=== PATIENT | female | born 1980 | race Caucasian/White ===

== ENCOUNTER 2020-02-04 10:26 | Day surgery (SDC) | payer BC ==
[2020-02-03 15:13] VITALS: BMI 23.0
[2020-02-04] MEDS ORDERED: MIDAZOLAM HCL 2 MG/2 ML SINGLE DOSE VIAL ONE (12:05)
[2020-02-04] MEDS ORDERED: PROPOFOL 20 ML ONE ×2 (12:07)
[2020-02-04] MEDS ORDERED: DEXAMETHASONE SOD PHOSPHATE 4 MG/1 ML VIAL ONE (12:07)
[2020-02-04] MEDS ORDERED: KETOROLAC TROMETHAMINE 30 MG/1 ML VIAL ONE (12:08)
--- NOTE | 2020-02-04 12:08 | HP ---
History & Physical Update - History History: No Change (Incomplete Ab) - Physical Physical: No Change - Assessment Assessment: No Change - Plan Plan: No Change (Suction, D&C)
[2020-02-04] MEDS ORDERED: PROMETHAZINE HCL 25 MG/1 ML VIAL IVPUSH PRN (12:14)
[2020-02-04] MEDS ORDERED: ONDANSETRON 4 MG/2 ML VIAL IVPUSH PRN (12:14)
[2020-02-04] MEDS ORDERED: oxyCODONE HCL 5 MG TABLET PO PRN (12:14)
[2020-02-04] MEDS ORDERED: LACTATED RINGERS SOLUTION 1,000 ML IV SCH (12:15)
[2020-02-04] MEDS ORDERED: ceFAZolin SODIUM 1 GM VIAL ONE (12:23)
[2020-02-04] MEDS ORDERED: ceFAZolin SODIUM 1 GM VIAL IVPB ONE (12:25)
--- NOTE | 2020-02-04 12:53 | OP ---
Operative Note - Note: Operative Date: 02/04/20 Pre-Operative Diagnosis: Incomplete Ab Operation: Suction, D&C Findings: Small amount of POC Post-Operative Diagnosis: Same as Pre-op Surgeon: Eusebio Butler Anesthesiologist/TRANSCRIPTION: Shaka Sen Anesthesia: General Specimens Removed: retained POC Estimated Blood Loss (mls): 20 Blood Volume Replaced (mls): 0 Fluid Volume Replaced (mls): 600 Operative Report Dictated: Yes
[2020-02-04 14:41] VITALS: PULSE 58
[2020-02-04 16:32] VITALS: BP 96/60; TEMP 97.8
--- NOTE | 2020-02-04 23:23 | OP ---
DATE OF OPERATION: 02/04/2020 PREOPERATIVE DIAGNOSIS: Incomplete . POSTOPERATIVE DIAGNOSIS: Incomplete . PROCEDURE: Suction dilatation and curettage. SURGEON: Dusty Duron MD. ANESTHESIOLOGIST: Shaka Sen MD. ANESTHESIA: General. COMPLICATIONS: None. FINDINGS: Small amount of retained products of conception was noted on suction curettage. No retained products of conception were noted at the end of the procedure. PROCEDURE: The patient was met preoperatively. Risks, benefits, and alternatives of surgery were discussed in detail. The consent form was discussed and explained. The patient verbalized understanding and requested to proceed with the surgery. She was brought to the OR with the IV running. The patient was placed on a surgical table in the supine position. The general anesthesia was achieved without difficulty. The patient was then placed in a dorsal lithotomy position using adjustable Peter stirrups. She was examined under anesthesia. The uterus appeared to be small, anteverted, with no pelvic or adnexal masses. The cervical os was slightly dilated, and there was a small amount of vaginal bleeding. The patient was then prepped and draped in the usual sterile fashion. A timeout procedure was conducted as per standard protocol. The speculum was then used to visualize the cervix. The cervix was grasped with a single-toothed tenaculum. The cervical os did not need to be dilated. A 7-mm suction curet was then used to evacuate the uterine contents. Once this was completed, a sharp curet was used to gently explore the uterine cavity and assure no retained products of conception. Once this was completed, all the instruments were removed. Sponge, lap, instrument counts were correct. Good hemostasis was confirmed. The patient was returned to supine position. She was transferred to recovery room in stable condition and awake. DUSTY DURON M.D. [id number]
--- NOTE | 2020-02-08 17:36 | PATH ---
Surgical Pathology Report Patient Name: SHARIFA CALLAWAY [place]. Rec. #: [id number] /Age/Gender: 1980 (Age: 39) / F Account: [id number] Location: [facility] SUR[facility] Taken: 02/04/2020 Received: 02/04/2020 Reported: 02/08/2020 Physicians: Eusebio Butler M.D. Specimen(s) Received PRODUCTS OF CONCEPTION Clinical History Incomplete Final Diagnosis CONTENTS OF UTERUS, SUCTION D&C: CHORIONIC VILLI PRESENT, CONSISTENT WITH PRODUCTS OF CONCEPTION. MARKED ACUTE DECIDUITIS. ACUTE AND CHRONIC ENDOMETRITIS IDENTIFIED. Electronically Signed Katelyn Hernandes M.D. Gross Description Received in formalin labeled "contents of uterus," and indicated on the requisition to be products of conception, is a 4.0 x 4.0 x 0.3 cm aggregate of foster red soft tissue fragment. No definitive villous tissue or somatic tissue is identified. The formalin is filtered and the specimen is entirely submitted in 3 cassettes. /02/04/2020 [facility]/02/04/2020
== END 2020-02-04 16:30 | disposition home or self-care (01) ==
LOC: JASU-SURG 10:26
PROVIDERS: ATTEND Obstetrics & Gynecology
PROC: 10D17ZZ Extraction of Products of Conception, Retained, Via Natural or Artificial Opening (ICD-10-PCS; principal; 2020-02-04 12:30)
DX: O03.4 Incomplete spontaneous abortion without complication (principal)
CPT/HCPCS: 86850; 86900; 86901; 88305-TC; 94760

== ENCOUNTER 2021-03-29 10:38 | Inpatient (IN) | payer BC ==
[2021-03-29] MEDS: ELECTROLYTE-148 SOLN 1,000 ML IV SCH ×2 (11:30→18:22)
[2021-03-29 11:37] VITALS: BMI 24.7
[2021-03-29 12:14] LABS: BASO % 0.6 % (0-2.0); EOS % 0.2 % (0-4.5); HEMATOCRIT 32.3 % (32.4-45.2); HEMOGLOBIN 11.5 GM/dL (10.7-15.3); LYMPH % 14.4 % (8-40); MCH 30.6 pg (25.7-33.7); MCHC 35.6 g/dl (32.0-36.0); MEAN PLT VOLUME 8.7 fl (7.5-11.1); MONO % 5.3 % (3.8-10.2); NEUT % 79.5 % (42.8-82.8); PLATELET COUNT 199 10^3/uL (134-434); RBC 3.76 M/mm3 (3.60-5.2); RDW 13.1 % (11.6-15.6); WHITE BLOOD COUNT 9.4 K/mm3 (4.0-10.0)
[2021-03-29 12:23] LABS: INR 0.96 (0.83-1.09); PROTHROMBIN TIME (PATIENT) 11.8 SEC (9.7-13.0)
[2021-03-29 12:26] LABS: ACTIVATED PTT 25.1 SECONDS (25.2-36.5)
[2021-03-29 12:31] LABS: BLOOD UREA NITROGEN 14.5 mg/dL (7-18); CALCIUM 8.5 mg/dL (8.5-10.1)
[2021-03-29 12:35] LABS: CREATININE 0.5 mg/dL (0.55-1.3)
[2021-03-29] MEDS ORDERED: PCA PUMP NR ONE ×2 (12:40→20:41)
[2021-03-29] MEDS ORDERED: FENTANYL/BUPIVACAINE/NS/PF - PCEA - 50 ML DISP.SYRIN EP ONE ×3 (12:40→20:41)
[2021-03-29] MEDS ORDERED: BUPIVACAINE HCL/PF 0.25% (2.5MG/ML) 10 ML VIAL ONE ×2 (12:46→12:50)
[2021-03-29] MEDS: FENTANYL/BUPIVACAINE/NS/PF - PCEA - 50 ML DISP.SYRIN EP SCH ×3 (13:00→20:40)
[2021-03-29] MEDS ORDERED: NALOXONE HCL 0.4 MG/ML VIAL IVPUSH PRN (13:20)
[2021-03-29] MEDS ORDERED: OXYTOCIN 20 UNITS in 0.9% NS 20 UNIT/1,000 ML INFUS.BAG IV ONE (17:01)
[2021-03-29] MEDS ORDERED: OXYTOCIN 30 UNITS in 0.9% NS 30 UNIT/500 ML INFUS.BAG IVPB SCH (21:15)
[2021-03-29] MEDS ORDERED: OXYTOCIN 30 UNITS in 0.9% NS 30 UNIT/500 ML INFUS.BAG IVPB ONE (21:16)
[2021-03-29] MEDS ORDERED: BISACODYL 10 MG SUPP.RECT RC PRN (22:44)
[2021-03-29] MEDS ORDERED: BENZOCAINE 20% 57 GM BOTTLE TP PRN (22:44)
[2021-03-29] MEDS ORDERED: METHYLERGONOVINE MALEATE 0.2 MG/1 ML AMP IM PRN (22:44)
[2021-03-29] MEDS ORDERED: WITCH HAZEL 50% (TUCKS) 40 PAD/JAR PAD TP PRN (22:44)
[2021-03-29] MEDS ORDERED: BENZOCAINE 28 GM HEMORRHOIDAL OINTMENT TP PRN (22:44)
[2021-03-29] MEDS ORDERED: OXYTOCIN 20 UNITS in 0.9% NS 20 UNIT/1,000 ML INFUS.BAG IV SCH (22:45)
[2021-03-30] MEDS: IBUPROFEN 600 MG TABLET (FP) PO PRN ×2 (08:01→18:24)
[2021-03-30] MEDS: ACETAMINOPHEN 325 MG TABLET (FP) PO PRN ×2 (08:02→18:26)
[2021-03-30] MEDS: PRENATAL VITAMINS W/ FOLIC ACID TABLET (FP) PO SCH (10:01)
[2021-03-30 11:47] LABS: BASO % 0.2 % (0-2.0); EOS % 0.3 % (0-4.5); HEMATOCRIT 31.8 % (32.4-45.2); HEMOGLOBIN 11.1 GM/dL (10.7-15.3); LYMPH % 13.9 % (8-40); MCH 30.7 pg (25.7-33.7); MCHC 34.8 g/dl (32.0-36.0); MEAN CELL VOLUME 88.2 fl (80-96); MONO % 6.8 % (3.8-10.2); NEUT % 78.8 % (42.8-82.8); PLATELET COUNT 191 10^3/uL (134-434); RDW 12.9 % (11.6-15.6); WHITE BLOOD COUNT 8.5 K/mm3 (4.0-10.0)
[2021-03-30] MEDS ORDERED: SENNOSIDES/DOCUSATE COMBO (SENNA PLUS) TABLET (UD) PO PRN (22:00)
[2021-03-31] MEDS: PRENATAL VITAMINS W/ FOLIC ACID TABLET (FP) PO SCH (09:49)
[2021-03-31 12:13] VITALS: BP 98/60; PULSE 77; TEMP 97.5
== END 2021-03-31 12:41 | disposition home or self-care (01) | DRG 807 ==
LOC: JDEL 10:38 → JLDR 11:10 → J3N 03-30 02:02 → J3W 03-30 17:57
PROVIDERS: ADMIT Obstetrics & Gynecology; ATTEND Obstetrics & Gynecology
PROC: 10E0XZZ Delivery of Products of Conception, External Approach (ICD-10-PCS; principal; 2021-03-29)
PROC: 10907ZC Drainage of Amniotic Fluid, Therapeutic from Products of Conception, Via Natural or Artificial Opening (ICD-10-PCS; 2021-03-29)
PROC: 0W8NXZZ Division of Female Perineum, External Approach (ICD-10-PCS; 2021-03-29)
DX: O62.0 Primary inadequate contractions (principal); Z37.0 Single live birth; O70.0 First degree perineal laceration during delivery; O90.81 Anemia of the puerperium; D64.9 Anemia, unspecified; Z3A.39 39 weeks gestation of pregnancy
CPT/HCPCS: 36415; 59409; 80048; 85025; 85610; 85730; 86780; 86850; 86900; 86901; C9803; U0003; U0005